=== PATIENT | female | born 1960 | race Caucasian/White ===

== ENCOUNTER 2016-08-11 22:29 | Emergency (ER) | payer OTHER ==
--- NOTE | 2016-08-11 22:40 | Emergency Department Record ---
History of Present Illness - General Chief complaint: Nosebleed/epistaxis Stated complaint: NOSE BLEED Time Seen by Provider: 08/11/16 22:36 Source: Patient Mode of Arrival: Ambulatory Limitations: No limitations - History of Present Illness Initial comments: 56 yo female presents to ED with a CC of nose bleed that began spontaneously 45 minutes prior to arrival. Patient denies any injury/trauma to the nose, and denies any use of anticoagulation medications regularly. Patient reports similar symptoms 2 years ago relieved by silver nitrate cautery. Patient denies health problems at her baseline. MD complaint: Epistaxis Onset/Timin -: Minutes(s) Severity: Moderate Consistency: Constant Improves with: None Worsens with: None - Related Data Home Medications Medication Instructions Recorded Confirmed Last Taken Amlodipine Besylate [Norvasc] 5 mg PO DAILY 08/11/16 08/11/16 Unknown Estradiol [Estradiol] 1 patch TD WEEKLY 08/11/16 08/11/16 Unknown Previous Rx's Medication Instructions Recorded Cephalexin [Keflex] 500 mg PO QID #27 cap 08/11/16 Allergies Allergy/AdvReac Type Severity Reaction Status Date / Time codeine [CODEINE] Allergy Unknown HYPERSENSIT Unverified 05/09/16 11:31 IVITY Penicillins [PENICILLINS] Allergy Unknown RASH Unverified 05/09/16 11:31 Review of Systems Constitutional: Denies: Chills, Fever, Malaise, Night sweats Eyes: Denies: Eye discharge, Eye pain ENT: Reports: Epistaxis. Denies: Congestion, Dental pain, Ear pain Respiratory: Denies: Cough, Dyspnea Cardiovascular: Denies: Chest pain, Dyspnea on exertion Endocrine: Denies: Fatigue, Heat or cold intolerance Gastrointestinal: Denies: Abdominal pain, Nausea, Vomiting Genitourinary: Denies: Dysuria, Frequency, Hematuria, Incontinence Musculoskeletal: Denies: Arthralgia, Back pain, Gout, Joint swelling Skin: Denies: Bruising, Change in color Neurological: Denies: Abnormal gait, Confusion, Headache, Seizure Psychiatric: Denies: Anxiety Hematological/Lymphatic: Denies: Anemia, Blood Clots Past Medical History - SOCIAL HISTORY Smoking Status: Never smoker - RESPIRATORY Hx Asthma: Yes (as a child) Hx Bronchitis: Yes Hx Pneumonia: Yes - CARDIOVASCULAR Hx Cardio Disorders: No - NEURO Hx Neuro Disorders: No - GI Hx GI Disorders: No - Hx Genitourinary Disorders: No - ENDOCRINE Hx Diabetes: No Hx Thyroid Disease: No - MUSCULOSKELETAL Hx Musculoskeletal Disorders: No - PSYCH Hx Psych Problems: No - HEMATOLOGY/ONCOLOGY Comment:: thalasemia minor Family Medical History Hx Cancer: Father Hx Diabetes: Mother Hx Heart Disease: Father, Mother Physical Exam - General General Appearance: Alert, Oriented x3, Cooperative, Moderate distress Limitations: No limitations - Head Head exam: Atraumatic, Normocephalic, Normal inspection Head exam detail: negative: Abrasion, Contusion, Coy's sign, General tenderness, Hematoma, Laceration - Eye Eye exam: Normal appearance. negative: Conjunctival injection, Periorbital swelling, Periorbital tenderness, Scleral icterus - ENT Ear exam: negative: Auricular hematoma, Auricular trauma Nasal Exam: Active bleeding. negative: Foreign body Mouth exam: negative: Drooling, Laceration, Muffled voice, Tongue elevation - Neck Neck exam: Normal inspection. negative: Meningismus, Tenderness - Respiratory Respiratory exam: Normal lung sounds bilaterally. negative: Rales, Respiratory distress, Rhonchi, Stridor - Cardiovascular Cardiovascular Exam: Regular rate, Normal rhythm, Normal heart sounds - GI/Abdominal GI/Abdominal exam: Soft. negative: Rebound, Rigid, Tenderness - Rectal Rectal exam: Deferred - exam: Deferred - Extremities Extremities exam: Normal inspection. negative: Calf tenderness, Pedal edema, Tenderness - Back Back exam: Denies: CVA tenderness (R), CVA tenderness (L) - Neurological Neurological exam: Alert, Normal gait, Oriented X3 - Psychiatric Psychiatric exam: Normal affect, Normal mood - Skin Skin exam: Normal color. negative: Abrasion Type of lesion: negative: abrasion Course - Reevaluation(s) Reevaluation #1: 08/11/16 23:37 Following TLE cotton ball removal, patient began bleeding again. Anterior packing placed without complication, no further bleeding. Will initiate keflex for packing placement as well. Patient was instructed to call either [facility] or Dr. Gates for packing removal in 3 days as directed. Disposition Disposition: Discharge Clinical Impression: Epistaxis Disposition: Home, Self-Care Condition: (2) Stable Instructions: Epistaxis (ED) Additional Instructions: Return to ED if your symptoms worsen or if you have any concerns. Follow-up with either Dr. Gates or Dr. Bailey for packing removal. Keflex as directed. Prescriptions: Cephalexin [Keflex] 500 mg PO QID #27 cap Referrals: SENIA GATES [DOCTOR OF OSTEOPATH] - ANN BAILEY [] - Forms: Patient Portal Access Time of Disposition: 23:39
[2016-08-11] MEDS ORDERED: CEPHALEXIN 500 MG CAPSULE PO STA (23:36)
== END 2016-08-12 00:17 | disposition home or self-care (01) ==
LOC: ER 22:29
DX: R04.0 Epistaxis (principal)
CPT/HCPCS: 30901; 99283

== ENCOUNTER 2019-07-03 18:44 | Emergency (ER) | payer OTHER ==
--- NOTE | 2019-07-03 18:54 | Emergency Department Record ---
History of Present Illness - General Chief Complaint: Headache Migraine Stated Complaint: SINUS,CHRISTOPHER Time Seen by Provider: 07/03/19 18:48 Source: Patient Mode of Arrival: Ambulatory Limitations: No limitations - History of Present Illness Initial Comments: 59 yo female presents to ED for evaluation of headache symptoms over the frontal sinus region, reports that her symptoms have been present for approximately 2 weeks. Patient denies history of migraine headaches, denies neck stiffness symptoms. Patient denies use of anticoagulation medications, and denies head injury. Patient does report sinus congestion, hoarseness, and non-productive cough symptoms and believes her symptoms are the result of a sinus infection. Patient denies health problems at her baseline. MD Complaint: Headache Onset/Timin -: Week(s) Onset Description: Gradual Location: Frontal Severity: Moderate Quality: Aching Consistency: Constant Improves With: Nothing Worsens With: None Other Symptoms: Cough - Related Data Previous Rx's Medication Instructions Recorded Doxycycline Hyclate 100 mg PO BID #20 cap 07/03/19 Allergies Allergy/AdvReac Type Severity Reaction Status Date / Time amlodipine Allergy Intermediate dizziness Verified 07/03/19 18:56 codeine [CODEINE] Allergy Unknown HYPERSENSIT Verified 07/03/19 18:56 IVITY Penicillins [PENICILLINS] Allergy Unknown RASH Verified 07/03/19 18:56 hydrochlorothiazide AdvReac leg cramps Verified 07/03/19 18:56 Review of Systems Constitutional: Denies: Chills, Fever, Malaise, Night sweats Eyes: Denies: Eye discharge, Eye pain ENT: Reports: Congestion, Throat pain. Denies: Ear pain, Epistaxis Respiratory: Reports: Cough. Denies: Dyspnea Cardiovascular: Denies: Chest pain, Dyspnea on exertion Endocrine: Denies: Fatigue, Heat or cold intolerance Gastrointestinal: Denies: Abdominal pain, Nausea, Vomiting Genitourinary: Denies: Incontinence, Retention Musculoskeletal: Denies: Arthralgia, Back pain Skin: Denies: Bruising, Change in color Neurological: Reports: Headache. Denies: Abnormal gait, Confusion, Seizure Psychiatric: Denies: Anxiety Hematological/Lymphatic: Denies: Anemia, Blood Clots Past Medical History - SOCIAL HISTORY Smoking Status: Never smoker - RESPIRATORY Hx Asthma: Yes (as a child) Hx Bronchitis: Yes Hx Pneumonia: Yes - CARDIOVASCULAR Hx Cardio Disorders: No - NEURO Hx Neuro Disorders: No - GI Hx GI Disorders: No - Hx Genitourinary Disorders: No - ENDOCRINE Hx Diabetes: No Hx Thyroid Disease: No - MUSCULOSKELETAL Hx Musculoskeletal Disorders: No - PSYCH Hx Psych Problems: No - HEMATOLOGY/ONCOLOGY Comment:: thalasemia minor Family Medical History Hx Cancer: Father Hx Diabetes: Mother Hx Heart Disease: Father, Mother Physical Exam - General General Appearance: Alert, Oriented x3, Cooperative, No acute distress Limitations: No limitations - Head Head exam: Atraumatic, Normocephalic, Normal inspection Head exam detail: negative: Abrasion, Contusion, Coy's sign, General tenderness, Hematoma, Laceration - Eye Eye exam: Normal appearance. negative: Conjunctival injection, Periorbital s welling, Periorbital tenderness, Scleral icterus - ENT Ear exam: negative: Auricular hematoma, Auricular trauma Nasal Exam: negative: Active bleeding, Discharge, Dried blood, Foreign body Mouth exam: negative: Drooling, Laceration, Muffled voice, Tongue elevation - Neck Neck exam: Normal inspection. negative: Meningismus, Tenderness - Respiratory Respiratory exam: Normal lung sounds bilaterally. negative: Rales, Respiratory distress, Rhonchi, Stridor - Cardiovascular Cardiovascular Exam: Regular rate, Normal rhythm, Normal heart sounds - GI/Abdominal GI/Abdominal exam: Soft. negative: Rebound, Rigid, Tenderness - Rectal Rectal exam: Deferred - exam: Deferred - Extremities Extremities exam: Normal inspection. negative: Pedal edema, Tenderness - Back Back exam: Denies: CVA tenderness (R), CVA tenderness (L) - Neurological Neurological exam: Alert, Normal gait, Oriented X3 - Psychiatric Psychiatric exam: Normal affect, Normal mood - Skin Skin exam: Normal color. negative: Abrasion Type of lesion: negative: abrasion Course - Reevaluation(s) Reevaluation #1: 07/03/19 19:01 History and examination appear c/w sinusitis of the frontal sinuses. No significant risk factors for intracranial hemorrhage, no meningeal signs are present on examination. Patient appears stable for discharge with treatment for sinusitis with Doxycycline as directed. Disposition Disposition: Discharge Clinical Impression: Sinusitis Qualifiers: Sinusitis location: frontal Chronicity: acute Recurrence: non-recurrent Qualified Code(s): J01.10 - Acute frontal sinusitis, unspecified Disposition: Home, Self-Care Condition: (2) Stable Instructions: Sinusitis (ED) Additional Instructions: Return to ED if your symptoms worsen or if you have any concerns. Doxycycline as directed. Follow-up with your family doctor in 3-5 days as directed. Prescriptions: Doxycycline Hyclate 100 mg PO BID #20 cap Forms: Patient Portal Access Time of Disposition: 18:53 Quality - Quality Measures Quality Measures: N/A - Blood Pressure Screening Does Patient Have Any of the Following: No Blood Pressure Classification: Pre-Hypertensive BP Reading Systolic Measurement: 139 Diastolic Measurement: 89 Screening for High Blood Pressure: < Pre-Hypertensive BP, F/U Documented > [[id number]] Pre-Hypertensive Follow-up Interventions: Referral to alternative/primary care provider.
== END 2019-07-03 19:05 | disposition home or self-care (01) ==
LOC: ER 18:44
DX: J01.10 Acute frontal sinusitis, unspecified (principal); R51 Headache
CPT/HCPCS: 99283